=== PATIENT | male | born 1950 | race American Indian/Alaskan Native ===

== ENCOUNTER 2020-10-04 21:00 | Inpatient (IN) | payer MEDICARE, OTHER ==
[2020-10-04] MEDS ORDERED: MAGNESIUM SULFATE 2 GM/50 ML BAG IV ONE (21:13)
[2020-10-04] MEDS ORDERED: ALBUTEROL 2.5 MG/3 ML NEBU IH ONE (21:13)
[2020-10-04] MEDS ORDERED: IPRATROPIUM 0.02% NEBU 2.5 ML IH ONE (21:13)
[2020-10-04] MEDS ORDERED: methylPREDNISolone Sod Succinate 125 MG/2 ML INJ IV ONE (21:13)
--- NOTE | 2020-10-04 21:17 | Emergency Department Report ---
ED Shortness of Breath HPI - General Chief Complaint: Dyspnea/Respdistress Stated Complaint: SOB Time Seen by Provider: 10/04/20 21:11 Source: patient, EMS Mode of arrival: Stretcher Limitations: No Limitations - History of Present Illness Initial Comments: Patient is a 70-year-old male who presents emergency with complaints of shortness of breath. Patient states he is also having fever and chills and cough. Patient states that he received his second dose of COVID-19 vaccine on September 27. Patient states her symptoms started 2 days ago. Patient dates his symptoms are worsening. Patient denies chest pain. Patient states he is having fatigue. Patient dates symptoms are better with rest and worse with exertion. Patient brought in by EMS. Report received from EMS. EMS states that the patient was found to be 88% on room air. Patient was placed on 3 L and his saturation increased to 96%. Patient was found to be febrile at 100.2. Patient was given albuterol treatment for the wheezing that EMS assessed in his lungs. EMS states they gave the patient 125 mg of Solu-Medrol. Patient denies recent travel. Patient denies recent international travel. Patient denies exposure to the novel coronavirus. Patient denies sick contacts. Patient denies loss of smell. Patient denies diarrhea. Patient denies coming in contact with anybody with symptoms of the novel coronavirus. Patient states that he had a colonoscopy in May and they remove 19 polyps and has been on iron pills ever since for anemia secondary to the polyps bleeding. Patient states she stopped taking the ferrous sulfate due to the GI side effects. Complaint: shortness of breath, cough -: Sudden Severity: severe Consistency: constant Improves With: rest Worsens With: exertion Known History Of: asthma Associated Symptoms: fever, cough, other (chills) Treatments Prior to Arrival: oxygen, bronchodilator - Related Data Home Oxygen Therapy: No Allergies Allergy/AdvReac Type Severity Reaction Status Date / Time No Known Allergies Allergy Unverified 10/04/20 21:22 ED Review of Systems ROS: Stated complaint: SOB Other details as noted in HPI Constitutional: see HPI, chills, fever, malaise Eyes: denies: eye pain, eye discharge, vision change ENT: denies: ear pain, throat pain Respiratory: see HPI, cough, shortness of breath. denies: wheezing Cardiovascular: denies: chest pain, palpitations Endocrine: no symptoms reported Gastrointestinal: denies: abdominal pain, nausea, diarrhea Genitourinary: denies: urgency, dysuria Musculoskeletal: denies: back pain, joint swelling, arthralgia Skin: denies: rash, lesions Neurological: denies: headache, weakness, paresthesias Psychiatric: denies: anxiety, depression Hematological/Lymphatic: denies: easy bleeding, easy bruising ED Past Medical Hx - Past Medical History Previous Medical History?: Yes Hx Hypertension: Yes Hx Diabetes: Yes Hx Asthma: Yes - Surgical History Past Surgical History?: No - Family History Family history: no significant - Social History Smoking Status: Never Smoker Substance Use Type: None ED Physical Exam - General Limitations: No Limitations General appearance: alert, in distress - Head Head exam: Present: atraumatic, normocephalic - Eye Eye exam: Present: normal appearance - ENT ENT exam: Present: mucous membranes moist - Neck Neck exam: Present: normal inspection - Respiratory Respiratory exam: Present: respiratory distress, wheezes, decreased breath sounds - Cardiovascular Cardiovascular Exam: Present: regular rate, normal rhythm. Absent: systolic murmur, diastolic murmur, rubs, gallop - GI/Abdominal GI/Abdominal exam: Present: soft, normal bowel sounds - Rectal Rectal exam: Present: deferred - Extremities Exam Extremities exam: Present: normal inspection - Back Exam Back exam: Present: normal inspection - Neurological Exam Neurological exam: Present: alert, oriented X3 - Psychiatric Psychiatric exam: Present: normal affect, normal mood - Skin Skin exam: Present: warm, dry, intact, normal color. Absent: rash ED Course Vital Signs 10/04/20 10/04/20 10/04/20 21:20 21:21 21:22 Temperature Pulse Rate 102 H 102 H 101 H Pulse Rate [ Bilateral] Respiratory 20 16 21 Rate Respiratory Rate [Bilateral ] Blood Pressure 138/74 O2 Sat by Pulse 93 96 96 Oximetry 10/04/20 10/04/20 10/04/20 21:24 21:26 21:27 Temperature 100.2 F H Pulse Rate 100 H 98 H Pulse Rate [ Bilateral] Respiratory 24 22 Rate Respiratory Rate [Bilateral ] Blood Pressure 138/74 138/74 O2 Sat by Pulse 95 96 Oximetry 10/04/20 10/04/20 10/04/20 21:28 21:30 21:31 Temperature Pulse Rate 99 H 97 H 97 H Pulse Rate [ Bilateral] Respiratory 25 H 22 22 Rate Respiratory Rate [Bilateral ] Blood Pressure 138/74 138/74 132/72 O2 Sat by Pulse 94 95 94 Oximetry 10/04/20 10/04/20 10/04/20 21:32 21:34 21:36 Temperature Pulse Rate 95 H 100 H 97 H Pulse Rate [ Bilateral] Respiratory 20 20 27 H Rate Respiratory Rate [Bilateral ] Blood Pressure 132/72 132/72 132/72 O2 Sat by Pulse 94 96 94 Oximetry 10/04/20 10/04/20 10/04/20 21:38 21:40 21:42 Temperature Pulse Rate 96 H 97 H 95 H Pulse Rate [ Bilateral] Respiratory 22 19 20 Rate Respiratory Rate [Bilateral ] Blood Pressure 132/72 132/72 132/72 O2 Sat by Pulse 94 96 94 Oximetry 10/04/20 10/04/20 10/04/20 21:44 21:46 21:48 Temperature Pulse Rate 94 H 94 H 95 H Pulse Rate [ Bilateral] Respiratory 16 16 17 Rate Respiratory Rate [Bilateral ] Blood Pressure 132/72 132/72 132/72 O2 Sat by Pulse 94 94 95 Oximetry 10/04/20 10/04/20 10/04/20 21:50 21:52 21:54 Temperature Pulse Rate 95 H 91 H 90 Pulse Rate [ Bilateral] Respiratory 25 H 29 H 20 Rate Respiratory Rate [Bilateral ] Blood Pressure 132/72 132/72 132/72 O2 Sat by Pulse 95 93 97 Oximetry 10/04/20 10/04/20 10/04/20 21:56 21:58 22:00 Temperature Pulse Rate 91 H 90 89 Pulse Rate [ Bilateral] Respiratory 10 L 21 21 Rate Respiratory Rate [Bilateral ] Blood Pressure 132/72 132/72 132/72 O2 Sat by Pulse 95 94 96 Oximetry 10/04/20 10/04/20 10/04/20 22:01 22:02 22:04 Temperature Pulse Rate 90 90 92 H Pulse Rate [ Bilateral] Respiratory 19 22 19 Rate Respiratory Rate [Bilateral ] Blood Pressure 136/77 136/77 136/77 O2 Sat by Pulse 94 94 92 Oximetry 10/04/20 10/04/20 10/04/20 22:06 22:08 22:09 Temperature Pulse Rate 90 89 Pulse Rate [ 90 Bilateral] Respiratory 19 31 H Rate Respiratory 20 Rate [Bilateral ] Blood Pressure 136/77 136/77 O2 Sat by Pulse 93 99 Oximetry 10/04/20 10/04/20 10/04/20 22:10 22:12 22:14 Temperature Pulse Rate 91 H 89 87 Pulse Rate [ Bilateral] Respiratory 22 26 H 22 Rate Respiratory Rate [Bilateral ] Blood Pressure 136/77 136/77 136/77 O2 Sat by Pulse 99 99 98 Oximetry 10/04/20 10/04/20 10/04/20 22:16 22:18 22:20 Temperature Pulse Rate 90 88 88 Pulse Rate [ Bilateral] Respiratory 22 23 25 H Rate Respiratory Rate [Bilateral ] Blood Pressure 136/77 136/77 136/77 O2 Sat by Pulse 97 96 96 Oximetry 10/04/20 10/04/20 10/04/20 22:22 22:24 22:26 Temperature Pulse Rate 88 88 89 Pulse Rate [ Bilateral] Respiratory 22 21 20 Rate Respiratory Rate [Bilateral ] Blood Pressure 136/77 136/77 136/77 O2 Sat by Pulse 97 97 97 Oximetry 10/04/20 10/04/20 10/04/20 22:28 22:30 22:31 Temperature Pulse Rate 90 90 89 Pulse Rate [ Bilateral] Respiratory 22 20 21 Rate Respiratory Rate [Bilateral ] Blood Pressure 136/77 136/77 136/72 O2 Sat by Pulse 97 97 97 Oximetry 10/04/20 10/04/20 10/04/20 22:32 22:34 22:36 Temperature Pulse Rate 89 91 H 95 H Pulse Rate [ Bilateral] Respiratory 18 21 21 Rate Respiratory Rate [Bilateral ] Blood Pressure 136/72 136/72 136/72 O2 Sat by Pulse 98 97 97 Oximetry 10/04/20 10/04/20 10/04/20 22:38 22:40 22:42 Temperature Pulse Rate 91 H 93 H 98 H Pulse Rate [ Bilateral] Respiratory 17 26 H 22 Rate Respiratory Rate [Bilateral ] Blood Pressure 136/72 136/72 136/72 O2 Sat by Pulse 97 97 97 Oximetry 10/04/20 10/04/20 10/04/20 22:44 22:46 22:48 Temperature Pulse Rate 93 H 94 H 92 H Pulse Rate [ Bilateral] Respiratory 20 25 H 19 Rate Respiratory Rate [Bilateral ] Blood Pressure 136/72 136/72 136/72 O2 Sat by Pulse 96 97 95 Oximetry 10/04/20 10/04/20 10/04/20 22:50 22:52 22:54 Temperature Pulse Rate 93 H 93 H 96 H Pulse Rate [ Bilateral] Respiratory 17 27 H 27 H Rate Respiratory Rate [Bilateral ] Blood Pressure 136/72 136/72 136/72 O2 Sat by Pulse 96 95 97 Oximetry 10/04/20 10/04/20 10/04/20 22:56 22:58 23:00 Temperature Pulse Rate 99 H 103 H Pulse Rate [ Bilateral] Respiratory 22 30 H Rate Respiratory Rate [Bilateral ] Blood Pressure 136/72 136/72 136/72 O2 Sat by Pulse 97 97 97 Oximetry 10/04/20 10/04/20 10/04/20 23:02 23:04 23:06 Temperature Pulse Rate 96 H 94 H Pulse Rate [ Bilateral] Respiratory 29 H 28 H 26 H Rate Respiratory Rate [Bilateral ] Blood Pressure 161/75 161/75 161/75 O2 Sat by Pulse 96 96 96 Oximetry 10/04/20 10/04/20 10/04/20 23:08 23:10 23:12 Temperature Pulse Rate 93 H 93 H 93 H Pulse Rate [ Bilateral] Respiratory 22 22 22 Rate Respiratory Rate [Bilateral ] Blood Pressure 161/75 161/75 161/75 O2 Sat by Pulse 96 96 96 Oximetry 10/04/20 10/04/20 10/04/20 23:14 23:16 23:18 Temperature Pulse Rate 83 92 H 92 H Pulse Rate [ Bilateral] Respiratory 23 22 18 Rate Respiratory Rate [Bilateral ] Blood Pressure 161/75 161/75 161/75 O2 Sat by Pulse 95 96 96 Oximetry 10/04/20 10/04/20 10/04/20 23:20 23:22 23:24 Temperature Pulse Rate 91 H 92 H 94 H Pulse Rate [ Bilateral] Respiratory 20 19 21 Rate Respiratory Rate [Bilateral ] Blood Pressure 161/75 161/75 161/75 O2 Sat by Pulse 96 96 96 Oximetry 10/04/20 10/04/20 10/04/20 23:26 23:28 23:30 Temperature Pulse Rate 98 H 99 H 100 H Pulse Rate [ Bilateral] Respiratory 18 22 22 Rate Respiratory Rate [Bilateral ] Blood Pressure 161/75 161/75 161/75 O2 Sat by Pulse 96 97 92 Oximetry 10/04/20 10/04/20 10/04/20 23:31 23:32 23:34 Temperature Pulse Rate 97 H 95 H 95 H Pulse Rate [ Bilateral] Respiratory 21 23 21 Rate Respiratory Rate [Bilateral ] Blood Pressure 161/79 161/79 161/79 O2 Sat by Pulse 94 95 95 Oximetry 10/04/20 10/04/20 10/04/20 23:36 23:38 23:40 Temperature Pulse Rate 95 H 93 H 91 H Pulse Rate [ Bilateral] Respiratory 22 18 21 Rate Respiratory Rate [Bilateral ] Blood Pressure 161/79 161/79 161/79 O2 Sat by Pulse 95 95 95 Oximetry 10/04/20 10/04/20 10/04/20 23:42 23:44 23:46 Temperature Pulse Rate 92 H 92 H 83 Pulse Rate [ Bilateral] Respiratory 20 25 H 19 Rate Respiratory Rate [Bilateral ] Blood Pressure 161/79 161/79 161/79 O2 Sat by Pulse 95 95 94 Oximetry 10/04/20 10/04/20 10/04/20 23:48 23:50 23:52 Temperature Pulse Rate 89 82 92 H Pulse Rate [ Bilateral] Respiratory 22 15 14 Rate Respiratory Rate [Bilateral ] Blood Pressure 161/79 161/79 161/79 O2 Sat by Pulse 94 95 94 Oximetry 10/04/20 10/04/20 10/04/20 23:54 23:56 23:58 Temperature Pulse Rate 83 93 H Pulse Rate [ Bilateral] Respiratory 15 14 Rate Respiratory Rate [Bilateral ] Blood Pressure 161/79 161/79 161/79 O2 Sat by Pulse 96 96 96 Oximetry 10/05/20 10/05/20 10/05/20 00:34 00:35 00:36 Temperature Pulse Rate 88 86 88 Pulse Rate [ Bilateral] Respiratory 14 21 19 Rate Respiratory Rate [Bilateral ] Blood Pressure 161/79 148/75 148/75 O2 Sat by Pulse 93 Oximetry 10/05/20 10/05/20 10/05/20 00:38 00:40 00:42 Temperature Pulse Rate 85 85 84 Pulse Rate [ Bilateral] Respiratory 22 15 16 Rate Respiratory Rate [Bilateral ] Blood Pressure 148/75 148/75 148/75 O2 Sat by Pulse 96 97 97 Oximetry 10/05/20 10/05/20 10/05/20 00:44 00:46 00:48 Temperature Pulse Rate 82 83 82 Pulse Rate [ Bilateral] Respiratory 21 15 16 Rate Respiratory Rate [Bilateral ] Blood Pressure 148/75 148/75 148/75 O2 Sat by Pulse 96 96 97 Oximetry 10/05/20 10/05/20 10/05/20 00:50 00:52 00:54 Temperature Pulse Rate 81 82 89 Pulse Rate [ Bilateral] Respiratory 22 21 19 Rate Respiratory Rate [Bilateral ] Blood Pressure 148/75 148/75 148/75 O2 Sat by Pulse 97 96 95 Oximetry 10/05/20 10/05/20 10/05/20 00:56 00:58 01:00 Temperature Pulse Rate 92 H 83 83 Pulse Rate [ Bilateral] Respiratory 19 21 14 Rate Respiratory Rate [Bilateral ] Blood Pressure 148/75 148/75 148/75 O2 Sat by Pulse 97 97 96 Oximetry 10/05/20 10/05/20 01:01 01:02 Temperature Pulse Rate 81 80 Pulse Rate [ Bilateral] Respiratory 22 15 Rate Respiratory Rate [Bilateral ] Blood Pressure 131/71 131/71 O2 Sat by Pulse 96 98 Oximetry - Reevaluation(s) Reevaluation #1: Patient states he is feeling a little bit better. Patient is currently on oxygen. Patient is on 2 L. Patient's oxygen saturation is improving. 10/04/20 21:48 Reevaluation #2: Patient states he is feeling much better. Patient still on oxygen support. Patient's lung sounds have improved. 10/04/20 22:48 Reevaluation #3: I discussed all results with patient. I discussed plan of care with patient. Patient agrees with plan of care and admission. Patient to be admitted to the hospitalist service. 10/05/20 01:14 - Consultations Consultation #1: Hospitalist consulted for admission. Hospitalist to admit patient. 10/05/20 01:14 ED Medical Decision Making - Lab Data Result diagrams: 10/04/20 21:24 10/04/20 21:55 - EKG Data -: EKG Interpreted by Me EKG shows normal: sinus rhythm, axis, intervals, QRS complexes, ST-T waves Rate: normal - Radiology Data Radiology results: report reviewed, image reviewed interpreted by me: Chest x-ray: No pneumonia, no pneumothorax, no foreign body, no osseous findings, no acute findings CHEST 1 VIEW INDICATION: Dyspnea. COMPARISON: None. FINDINGS: Support devices: None. Heart: Normal. Lungs/Pleura: Streaky opacities in the bases are likely atelectatic. Lungs are otherwise clear. No pleural abnormality is seen. IMPRESSION: 1. No acute findings. CTA CHEST WITH IV CONTRAST INDICATION: Patient complains of shortness of breath. Hypoxia. TECHNIQUE: Axial CT images were obtained through the chest after injection of IV contrast. 3 plane MIP reconstructions were produced. All CT scans at this location are performed using CT dose reduction for ALARA by means of automated exposure control. COMPARISON: No prior CTs. FINDINGS: Pulmonary Arteries: No pulmonary emboli. Thoracic Aorta: No acute abnormality. Heart: Normal. Lungs: No acute air space or interstitial disease. Pleura: No pleural effusion. No pneumothorax. Lymph Nodes: No significant adenopathy. Additional Findings: None. Upper Abdomen: No acute findings. Skeletal Structures: No significant osseous abnormality. IMPRESSION: 1. No CT evidence for pulmonary embolism. 2. No acute findings. - Medical Decision Making Patient is a 70-year-old male who presents emergency room with complaints of shortness of breath and difficulty breathing. Patient history of asthma. Patient brought in by EMS. EMS gave the patient albuterol and Solu-Medrol. Patient also required oxygen support by EMS due to hypoxia with a oxygen saturation of 88%. Patient initially on 6 L and decreased to 2 L after DuoNeb and magnesium was given. Patient still required oxygen support. Patient's lung sounds improved. Patient's work to breathe has improved with therapy. Patient's lung sounds improved. Patient's work to breathe has improved with therapy. Patient had labs done which showed a elevated lactic acid and WBC, elevated D-dimer and UTI. Patient also had Covid labs done. Patient was also initially tachycardic. Patient treated for sepsis. Patient given early antibiotics and fluids. Patient's heart rate responded well to fluids. Patient had a chest x-ray done and shows no acute findings. I personally reviewed the chest x-ray. Patient EKG done shows a sinus rhythm. No acute findings or ST segment changes on the EKG. I personally reviewed the EKG. patient had a CTA of the chest to rule out acute PE and acute chest findings and for elevated D- dimer. Patient CTA was negative for acute findings. Patient found to have sepsis and the only source of infection was UTI. Antibiotic therapy will cover UTI. Patient admitted to the hospital service for further evaluation treatment. Critical care time documented due to the multiple reassessments, prolonged time at the bedside, interpretation of diagnostics and labs. - Differential Diagnosis Status asthmaticus, fever, pneumonia, Covid vaccine reaction Critical Care Time: Yes Critical care time in (mins) excluding proc time.: 35 Critical care attestation.: If time is entered above; I have spent that time in minutes in the direct care of this critically ill patient, excluding procedure time. Critical Care Time: 35 minutes ED Disposition Clinical Impression: Lactic acid acidosis, COVID-19 vaccine series started, Person under investigation for COVID-19 Fever Qualifiers: Fever type: unspecified Qualified Code(s): R50.9 - Fever, unspecified Respiratory failure Qualifiers: Chronicity: acute Respiratory failure complication: hypoxia Qualified Code(s): J96.01 - Acute respiratory failure with hypoxia Status asthmaticus Qualifiers: Asthma severity: moderate Asthma persistence: persistent Qualified Code(s): J45.42 - Moderate persistent asthma with status asthmaticus UTI (urinary tract infection) Qualifiers: Urinary tract infection type: acute cystitis Hematuria presence: with hematuria Qualified Code(s): N30.01 - Acute cystitis with hematuria Sepsis Qualifiers: Sepsis type: sepsis due to unspecified organism Sepsis acute organ dysfunction status: without acute organ dysfunction Qualified Code(s): A41.9 - Sepsis, un specified organism Disposition: OP ADMIT IP TO THIS HOSP Is pt being admited?: Yes Does the pt Need Aspirin: No Condition: Critical Referrals: PRIMARY CARE, [Primary Care Provider] - 3-5 Days Time of Disposition: 01:12
[2020-10-04] MEDS ORDERED: SODIUM CHLORIDE 0.9% 1000 ML IV SOLN IV ONE (21:49)
[2020-10-04] MEDS ORDERED: AZITHROMYCIN/NS 500 MG/250 ML 500 MG/250 ML BAG IV ONE (21:49)
[2020-10-04] MEDS ORDERED: cefTRIAXone/NS 2 GM/100 ML 2 GM/100 ML BAG IV ONE (21:49)
[2020-10-04 21:52] LABS: Hemoglobin 13.4 gm/dl (11.8-15.2); Mean Corpuscular HGB Conc 32 % (32-34); Mean Corpuscular Volume 81 fl (84-94); Platelet Count 296 K/mm3 (140-440); Red Blood Count 5.16 M/mm3 (3.65-5.03); Red Cell Distribution Width 16.2 % (13.2-15.2)
[2020-10-04 21:56] LABS: Bacteria,Urine 2+ /HPF (Negative); Bilirubin,Urine NEG (Negative); Blood,Urine NEG (Negative); Color,Urine Yellow (Yellow); Mucus,Urine FEW /HPF
[2020-10-04 21:57] LABS: Protein,Urine >500 mg/dL (Negative)
[2020-10-04 22:04] LABS: Creatine Kinase MB < 1.0 ng/mL (0.0-4.0)
[2020-10-04 22:05] LABS: Alanine Aminotransferase 43 units/L (7-56); Albumin 2.9 g/dL (3.9-5); BUN/Creatinine Ratio 9; Blood Urea Nitrogen 13 mg/dL (9-20); Hemolysis Index 10
[2020-10-04 22:29] LABS: Band Neutrophils # (Manual) 2.9 K/mm3; Hypochromasia 1+; Total Cells Counted 100
[2020-10-04 22:30] LABS: Large Platelets Rare
[2020-10-04 22:31] LABS: Platelet Estimate Consistent w Auto
--- NOTE | 2020-10-04 23:10 | XRay Report ---
CHEST 1 VIEW INDICATION: Dyspnea. COMPARISON: None. FINDINGS: Support devices: None. Heart: Normal. Lungs/Pleura: Streaky opacities in the bases are likely atelectatic. Lungs are otherwise clear. No pl eural abnormality is seen. IMPRESSION: 1. No acute findings. Signer Name: Royal Myers MD Signed: 10/04/2020 11:06 PM Workstation Name: [id number]
--- NOTE | 2020-10-05 00:39 | Cat Scan Report ---
CTA CHEST WITH IV CONTRAST INDICATION: Patient complains of shortness of breath. Hypoxia. TECHNIQUE: Axial CT images were obtained through the chest after injection of IV contrast. 3 plane MIP reconstru ctions were produced. All CT scans at this location are performed using CT dose reduction for ALARA b y means of automated exposure control. COMPARISON: No prior CTs. FINDINGS: Pulmonary Arteries: No pulmonary emboli. Thoracic Aorta: No acute abnormality. Heart: Normal. Lungs: No acute air space or interstitial disease. Pleura: No pleural effusion. No pneumothorax. Lymph Nodes: No significant adenopathy. Additional Findings: None. Upper Abdomen: No acute findings. Skeletal Structures: No significant osseous abnormality. IMPRESSION: 1. No CT evidence for pulmonary embolism. 2. No acute findings. Signer Name: Royal Myers MD Signed: 10/05/2020 12:34 AM Workstation Name: [id number]
[2020-10-05] MEDS ORDERED: MAGNESIUM HYDROXIDE (MOM) ORAL LIQD UDC PO PRN (01:16)
[2020-10-05] MEDS ORDERED: DEXTROSE 50% IN WATER (25GM) 50 ML SYRINGE IV PRN (01:16)
[2020-10-05] MEDS ORDERED: ONDANSETRON 4 MG/2 ML INJ IV PRN (01:16)
[2020-10-05] MEDS ORDERED: ACETAMINOPHEN 325 MG TAB PO PRN (01:16)
[2020-10-05 01:27] LABS: C-Reactive Protein 6.9 mg/dL (0.00-1.30)
--- NOTE | 2020-10-05 01:36 | History and Physical Report ---
History of Present Illness Date of examination: 10/05/20 Date of admission: 10/05/2020 Chief complaint: Shortness of Breath History of present illness: 70-year-old male with known history of diabetes mellitus, hypertension and asthma presenting to the emergency room today complaining of shortness of breath. Shortness of breath has been ongoing for the past 2 days. He has had associated fever and chills and some mild cough. Patient denies any chest pain, no nausea vomiting, no headache or dizziness and no diaphoresis. He indicates that he got his second dose of COVID-19 vaccine on September 27. En route to the hospital EMS indicates that her oxygen saturation was about 88% on room air and was placed on 3 L of oxygen by nasal cannula with oxygen saturation improving to about 96%. Upon arrival in the emergency room was found to have a low-grade fever 100.2 F. He was found to be wheezing and was given some nebulizing treatment with improvement. Work-up in the emergency room today reveals elevated D-dimer, elevated lactic acid, chest x-ray unremarkable. Patient admitted with asthma exacerbation. He will also be ruled out for COVID- 19. Past History Past Medical History: diabetes, hypertension, other (Asthma) Past Surgical History: No surgical history Social history: no significant social history Medications and Allergies Allergies Allergy/AdvReac Type Severity Reaction Status Date / Time No Known Allergies Allergy Unverified 10/04/20 21:22 Active Meds: Active Medications Acetaminophen (Acetaminophen 325 Mg Tab) 650 mg PO Q4H PRN PRN Reason: Pain MILD(1-3)/Fever >100.5/RUIZ Albuterol/Ipratropium (Ipratropium/Albuterol Sulfate 3 Ml Ampul.Neb) 1 ampul IH Q6HRT [facility] Dextrose (Dextrose 50% In Water (25gm) 50 Ml Syringe) 50 ml IV Q30MIN PRN; Protocol PRN Reason: Hypoglycemia Dextrose (Dextrose 50% In Water (25gm) 50 Ml Syringe) 50 ml IV Q30MIN PRN; Protocol PRN Reason: Hypoglycemia Heparin Sodium (Porcine) (Heparin 5,000 Unit/1 Ml Vial) 5,000 unit SUB-Q Q8HR [facility] Insulin Human Lispro (Insulin Lispro 100 Unit/Ml) 0 unit SUB-Q ACHS [facility]; Protocol Magnesium Hydroxide (Magnesium Hydroxide (Mom) Oral Liqd Udc) 30 ml PO Q4H PRN PRN Reason: Constipation Methylprednisolone Sodium Succinate (Methylprednisolone Sod Succinate 40 Mg/1 Ml Inj) 40 mg IV Q8HR [facility] Ondansetron HCl (Ondansetron 4 Mg/2 Ml Inj) 4 mg IV Q8H PRN PRN Reason: Nausea And Vomiting Sodium Chloride (Sodium Chloride 0.9% 10 Ml Flush Syringe) 10 ml IV BID [facility] Sodium Chloride (Sodium Chloride 0.9% 10 Ml Flush Syringe) 10 ml IV PRN PRN PRN Reason: LINE FLUSH Review of Systems Constitutional: fever, no chills Ears, nose, mouth and throat: no nasal congestion, no sore throat Cardiovascular: no chest pain, no palpitations Respiratory: cough, shortness of breath, wheezing Gastrointestinal: no abdominal pain, no nausea, no vomiting, no diarrhea Genitourinary Male: no dysuria, no hematuria, no flank pain, no nocturia Musculoskeletal: no neck pain, no low back pain Integumentary: no rash, no pruritis Neurological: no headaches, no confusion Psychiatric: no anxiety, no depression, no confusion Endocrine: no polydipsia, no polyuria, no nocturia Exam - Constitutional Vitals: Temp Pulse Resp BP Pulse Ox 100.2 F H 81 19 161/79 97 10/04/20 21:27 10/05/20 01:22 10/05/20 01:22 10/05/20 01:24 10/05/20 01:24 General appearance: Present: no acute distress, well-nourished, obese - EENT Eyes: Present: PERRL, EOM intact. Absent: scleral icterus ENT: hearing intact, clear oral mucosa, dentition normal - Neck Neck: Present: supple, normal ROM - Respiratory Respiratory effort: normal Respiratory: bilateral: wheezing - Cardiovascular Rhythm: regular Heart Sounds: Present: S1 & S2. Absent: gallop, systolic murmur, diastolic murmur, rub, click - Extremities Extremities: no ischemia, pulses intact, pulses symmetrical, No edema, normal temperature, normal color, Full ROM Peripheral Pulses: within normal limits - Abdominal General gastrointestinal: Present: soft, non-tender, non-distended, normal bowel sounds. Absent: mass - Integumentary Integumentary: Present: clear, warm, dry. Absent: rash - Musculoskeletal Musculoskeletal: strength equal bilaterally - Psychiatric Psychiatric: appropriate mood/affect, intact judgment & insight, memory intact, cooperative - Neurologic Neurologic: CNII-XII intact, no focal deficits, moves all extremities HEART Score - HEART Score Troponin: Troponin T < 0.010 ng/mL (0.00-0.029) 10/04/20 21:24 Results - Labs CBC & Chem 7: 10/04/20 21:24 10/04/20 21:55 Labs: Abnormal lab results 10/04/20 10/04/20 10/04/20 Range/Units 21:24 21:24 21:24 WBC 18.0 H (4.5-11.0) K/mm3 RBC 5.16 H (3.65-5.03) M/mm3 MCV 81 L (84-94) fl MCH 26 L (28-32) pg RDW 16.2 H (13.2-15.2) % Seg Neuts % (Manual) 76.0 H (40.0-70.0) % Lymphocytes % (Manual) 6.0 L (13.4-35.0) % Seg Neutrophils # Man 13.7 H (1.8-7.7) K/mm3 Lymphocytes # (Manual) 1.1 L (1.2-5.4) K/mm3 D-Dimer (0-234) ng/mlDDU Sodium 136 L (137-145) mmol/L Carbon Dioxide 19 L (22-30) mmol/L Creatinine 1.4 H (0.8-1.3) mg/dL Glucose (75-100) mg/dL Lactic Acid 3.20 H* (0.7-2.0) mmol/L Lactate Dehydrogenase (91-180) units/L C-Reactive Protein (0.00-1.30) mg/dL Albumin 2.9 L (3.9-5) g/dL Urine WBC (Auto) (0.0-6.0) /HPF 10/04/20 10/04/20 10/04/20 Range/Units 21:42 21:55 21:55 WBC (4.5-11.0) K/mm3 RBC (3.65-5.03) M/mm3 MCV (84-94) fl MCH (28-32) pg RDW (13.2-15.2) % Seg Neuts % (Manual) (40.0-70.0) % Lymphocytes % (Manual) (13.4-35.0) % Seg Neutrophils # Man (1.8-7.7) K/mm3 Lymphocytes # (Manual) (1.2-5.4) K/mm3 D-Dimer 2308.90 H (0-234) ng/mlDDU Sodium (137-145) mmol/L Carbon Dioxide (22-30) mmol/L Creatinine (0.8-1.3) mg/dL Glucose 120 H (75-100) mg/dL Lactic Acid (0.7-2.0) mmol/L Lactate Dehydrogenase 232 H (91-180) units/L C-Reactive Protein 6.90 H (0.00-1.30) mg/dL Albumin (3.9-5) g/dL Urine WBC (Auto) 37.0 H (0.0-6.0) /HPF 10/04/20 Range/Units 22:03 WBC (4.5-11.0) K/mm3 RBC (3.65-5.03) M/mm3 MCV (84-94) fl MCH (28-32) pg RDW (13.2-15.2) % Seg Neuts % (Manual) (40.0-70.0) % Lymphocytes % (Manual) (13.4-35.0) % Seg Neutrophils # Man (1.8-7.7) K/mm3 Lymphocytes # (Manual) (1.2-5.4) K/mm3 D-Dimer (0-234) ng/mlDDU Sodium (137-145) mmol/L Carbon Dioxide (22-30) mmol/L Creatinine (0.8-1.3) mg/dL Glucose (75-100) mg/dL Lactic Acid 2.70 H* (0.7-2.0) mmol/L Lactate Dehydrogenase (91-180) units/L C-Reactive Protein (0.00-1.30) mg/dL Albumin (3.9-5) g/dL Urine WBC (Auto) (0.0-6.0) /HPF Assessment and Plan - Patient Problems (1) Respiratory failure Current Visit: Yes Status: Acute Qualifiers: Chronicity: acute Respiratory failure complication: hypoxia Qualified Code(s): J96.01 - Acute respiratory failure with hypoxia Plan to address problem: Possibly secondary to the asthma exacerbation and underlying bronchitis. We will place consult to pulmonology for evaluation. (2) Sepsis Current Visit: Yes Status: Acute Qualifiers: Sepsis type: sepsis due to unspecified organism Sepsis acute organ dysf unction status: without acute organ dysfunction Qualified Code(s): A41.9 - Sepsis, unspecified organism Plan to address problem: Present on admission. Patient started on empiric IV antibiotics and IV fluid. Monitor labs (3) Status asthmaticus Current Visit: Yes Status: Acute Qualifiers: Asthma severity: moderate Asthma persistence: persistent Qualified Code(s): J45.42 - Moderate persistent asthma with status asthmaticus Plan to address problem: Patient commenced on nebulizing treatments and IV steroid. We will keep O2 saturation greater or equal to 94%. (4) UTI (urinary tract infection) Current Visit: Yes Status: Acute Qualifiers: Urinary tract infection type: acute cystitis Hematuria presence: with hematuria Qualified Code(s): N30.01 - Acute cystitis with hematuria Plan to address problem: Patient started on empiric IV antibiotics. (5) Morbid obesity with BMI of 45.0-49.9, adult Current Visit: Yes Status: Acute Plan to address problem: Lifestyle modification to be encouraged. We will place dietary consult. (6) DVT prophylaxis Current Visit: Yes Status: Acute Plan to address problem: Patient placed on subcutaneous heparin. (7) Full code status Current Visit: Yes Status: Acute Plan to address problem: Patient is a full code.
[2020-10-05] MEDS: IPRATROPIUM/ALBUTEROL SULFATE 3 ML AMPUL.NEB IH SCH ×4 (05:20→21:31)
[2020-10-05] MEDS: methylPREDNISolone Sod Succinate 40 MG/1 ML INJ IV SCH ×3 (05:34→21:50)
[2020-10-05] MEDS: HEPARIN 5,000 UNIT/1 ML VIAL SUB-Q SCH ×3 (05:34→21:50)
[2020-10-05] MEDS: INSULIN LISPRO 100 UNIT/ML SUB-Q SCH ×4 (08:28→21:49)
[2020-10-05] MEDS ORDERED: cefTRIAXone/NS 1 GM/50 ML 1 GM/50 ML BAG IV SCH ×2 (10:00→14:00)
--- NOTE | 2020-10-05 12:29 | Consultation ---
History of Present Illness Consult date: 10/05/20 Requesting physician: ROLF SERNA Reason for consult: asthma, hypoxemia History of present illness: 70 morbidly obese male admitted with asthma exacerbation. Patient concerned as he took his second vaccine back on 09/27/20. Symptoms started 2 days ago. Feels better already this am. Past History Past Medical History: diabetes, hypertension, other (Asthma) Past Surgical History: No surgical history Social history: no significant social history Medications and Allergies Allergies Allergy/AdvReac Type Severity Reaction Status Date / Time No Known Allergies Allergy Unverified 10/04/20 21:22 Active Meds: Active Medications Acetaminophen (Acetaminophen 325 Mg Tab) 650 mg PO Q4H PRN PRN Reason: Pain MILD(1-3)/Fever >100.5/RUIZ Albuterol/Ipratropium (Ipratropium/Albuterol Sulfate 3 Ml Ampul.Neb) 1 ampul IH Q6HRT [facility] Last Admin: 10/05/20 07:51 Dose: 1 ampul Documented by: Dextrose (Dextrose 50% In Water (25gm) 50 Ml Syringe) 0 ml IV Q30MIN PRN; Protocol PRN Reason: Hypoglycemia Heparin Sodium (Porcine) (Heparin 5,000 Unit/1 Ml Vial) 5,000 unit SUB-Q Q8HR [facility] Last Admin: 10/05/20 05:34 Dose: 5,000 unit Documented by: Ceftriaxone Sodium (Rocephin/Ns 1 Gm/50 Ml) 1 gm in 50 mls @ 100 mls/hr IV Q24HR [facility]; Protocol Last Admin: 10/05/20 11:58 Dose: 100 mls/hr Documented by: Insulin Human Lispro (Insulin Lispro 100 Unit/Ml) 0 unit SUB-Q ACHS [facility]; Protocol Last Admin: 10/05/20 08:28 Dose: 2 unit Documented by: Magnesium Hydroxide (Magnesium Hydroxide (Mom) Oral Liqd Udc) 30 ml PO Q4H PRN PRN Reason: Constipation Methylprednisolone Sodium Succinate (Methylprednisolone Sod Succinate 40 Mg/1 Ml Inj) 40 mg IV Q8HR [facility] Last Admin: 10/05/20 05:34 Dose: 40 mg Documented by: Ondansetron HCl (Ondansetron 4 Mg/2 Ml Inj) 4 mg IV Q8H PRN PRN Reason: Nausea And Vomiting Sodium Chloride (Sodium Chloride 0.9% 10 Ml Flush Syringe) 10 ml IV BID [facility] Last Admin: 10/05/20 11:58 Dose: 10 ml Documented by: Sodium Chloride (Sodium Chloride 0.9% 10 Ml Flush Syringe) 10 ml IV PRN PRN PRN Reason: LINE FLUSH Physical Examination Vital signs: Vital Signs Pulse Resp Pulse Ox 102 H 20 93 10/04/20 21:20 10/04/20 21:20 10/04/20 21:20 Results - Laboratory Findings CBC and BMP: 10/04/20 21:24 10/04/20 21:55 PT/INR, D-dimer D-Dimer 2308.90 ng/mlDDU (0-234) H 10/04/20 21:55 Abnormal lab findings: Abnormal Labs 10/04/20 10/04/20 10/04/20 21:24 21:24 21:24 WBC 18.0 H RBC 5.16 H MCV 81 L MCH 26 L RDW 16.2 H Seg Neuts % (Manual) 76.0 H Lymphocytes % (Manual) 6.0 L Seg Neutrophils # Man 13.7 H Lymphocytes # (Manual) 1.1 L D-Dimer Sodium 136 L Carbon Dioxide 19 L Creatinine 1.4 H Glucose POC Glucose Lactic Acid 3.20 H* Lactate Dehydrogenase C-Reactive Protein Albumin 2.9 L Urine WBC (Auto) 10/04/20 10/04/20 10/04/20 21:42 21:55 21:55 WBC RBC MCV MCH RDW Seg Neuts % (Manual) Lymphocytes % (Manual) Seg Neutrophils # Man Lymphocytes # (Manual) D-Dimer 2308.90 H Sodium Carbon Dioxide Creatinine Glucose 120 H POC Glucose Lactic Acid Lactate Dehydrogenase 232 H C-Reactive Protein 6.90 H Albumin Urine WBC (Auto) 37.0 H 10/04/20 10/05/20 10/05/20 22:03 08:21 08:55 WBC RBC MCV MCH RDW Seg Neuts % (Manual) Lymphocytes % (Manual) Seg Neutrophils # Man Lymphocytes # (Manual) D-Dimer Sodium Carbon Dioxide Creatinine Glucose POC Glucose 183 H Lactic Acid 2.70 H* 2.20 H* Lactate Dehydrogenase C-Reactive Protein Albumin Urine WBC (Auto) - Diagnostic Findings Chest x-ray: image reviewed CT scan - chest: image reviewed Assessment and Plan 70 y/o obese male with asthma exacerbation. 1. Added bid Pulmicort therapy 2. Suggest walk test tomorrow 3. At discharge would send out on SYmbicort 160 2 puffs BID and PRN albuterol rescue inhaler 4. At discharge would send out on Prednisone 60 daily for 2 days, 40 daily for 2 days, then 20 daily for 2 days then stop. 5. NO objection to discharge tomorrow. Follow up COVID testing.
--- NOTE | 2020-10-05 12:33 | Consultation ---
History of Present Illness - Reason for Consult Consult date: 10/05/20 - History of Present Illness 70-year-old man past medical history diabetes, hypertension, asthma presented to the hospital complaining of shortness of breath. He notes this began approximately 2 days prior to admission and has been worse since then. Complains of associated fevers and cough. He otherwise denies any symptoms. He notes receiving a second dose of COVID-19 vaccine on September 27. Afebrile with T-max 100.2. White count 18. Mild pyuria on urinalysis. Procalcitonin 25.8, normal renal function. Blood cultures no growth so far. Currently on ceftriaxone and methylprednisolone. Currently on 3 L nasal can nula. Covid testing pending. Imaging personally reviewed: Chest CT: No evidence of pulmonary embolism. No acute pneumonia evident. Review of systems: Deferred to reduce to the risk of transmission of COVID-19 Past History Past Medical History: diabetes, hypertension, other (Asthma) Past Surgical History: No surgical history Social history: no significant social history Medications and Allergies Allergies Allergy/AdvReac Type Severity Reaction Status Date / Time No Known Allergies Allergy Unverified 10/04/20 21:22 Active Meds: Active Medications Acetaminophen (Acetaminophen 325 Mg Tab) 650 mg PO Q4H PRN PRN Reason: Pain MILD(1-3)/Fever >100.5/RUIZ Albuterol/Ipratropium (Ipratropium/Albuterol Sulfate 3 Ml Ampul.Neb) 1 ampul IH Q6HRT [facility] Last Admin: 10/05/20 07:51 Dose: 1 ampul Documented by: Budesonide (Budesonide 0.5 Mg/2 Ml Nebu) 0.5 mg IH Q12HRT [facility] Dextrose (Dextrose 50% In Water (25gm) 50 Ml Syringe) 0 ml IV Q30MIN PRN; Protocol PRN Reason: Hypoglycemia Heparin Sodium (Porcine) (Heparin 5,000 Unit/1 Ml Vial) 5,000 unit SUB-Q Q8HR [facility] Last Admin: 10/05/20 05:34 Dose: 5,000 unit Documented by: Ceftriaxone Sodium (Rocephin/Ns 1 Gm/50 Ml) 1 gm in 50 mls @ 100 mls/hr IV Q24HR [facility]; Protocol Last Admin: 10/05/20 11:58 Dose: 100 mls/hr Documented by: Insulin Human Lispro (Insulin Lispro 100 Unit/Ml) 0 unit SUB-Q ACHS [facility]; Protocol Last Admin: 10/05/20 08:28 Dose: 2 unit Documented by: Magnesium Hydroxide (Magnesium Hydroxide (Mom) Oral Liqd Udc) 30 ml PO Q4H PRN PRN Reason: Constipation Methylprednisolone Sodium Succinate (Methylprednisolone Sod Succinate 40 Mg/1 Ml Inj) 40 mg IV Q8HR [facility] Last Admin: 10/05/20 05:34 Dose: 40 mg Documented by: Ondansetron HCl (Ondansetron 4 Mg/2 Ml Inj) 4 mg IV Q8H PRN PRN Reason: Nausea And Vomiting Sodium Chloride (Sodium Chloride 0.9% 10 Ml Flush Syringe) 10 ml IV BID [facility] Last Admin: 10/05/20 11:58 Dose: 10 ml Documented by: Sodium Chloride (Sodium Chloride 0.9% 10 Ml Flush Syringe) 10 ml IV PRN PRN PRN Reason: LINE FLUSH Physical Examination - Physical Exam Narrative exam: Physical exam deferred to reduce risk of transmission of COVID-19. Please refer to primary team's note. - Constitutional Vitals: Vital Signs Temp Pulse Resp BP Pulse Ox 98.3 F 88 18 146/73 98 10/05/20 04:57 10/05/20 07:51 10/05/20 07:51 10/05/20 04:57 10/05/20 07:31 Temperature -Last 24 Hours Temperature 98.3 F Temperature 100.2 F Results - Labs CBC & Chem 7: 10/04/20 21:24 10/04/20 21:55 Labs: Abnormal lab results 10/04/20 10/04/20 10/04/20 Range/Units 21:24 21:24 21:24 WBC 18.0 H (4.5-11.0) K/mm3 RBC 5.16 H (3.65-5.03) M/mm3 MCV 81 L (84-94) fl MCH 26 L (28-32) pg RDW 16.2 H (13.2-15.2) % Seg Neuts % (Manual) 76.0 H (40.0-70.0) % Lymphocytes % (Manual) 6.0 L (13.4-35.0) % Seg Neutrophils # Man 13.7 H (1.8-7.7) K/mm3 Lymphocytes # (Manual) 1.1 L (1.2-5.4) K/mm3 D-Dimer (0-234) ng/mlDDU Sodium 136 L (137-145) mmol/L Carbon Dioxide 19 L (22-30) mmol/L Creatinine 1.4 H (0.8-1.3) mg/dL Glucose (75-100) mg/dL POC Glucose (70-105) mg/dL Lactic Acid 3.20 H* (0.7-2.0) mmol/L Lactate Dehydrogenase (91-180) units/L C-Reactive Protein (0.00-1.30) mg/dL Albumin 2.9 L (3.9-5) g/dL Urine WBC (Auto) (0.0-6.0) /HPF 10/04/20 10/04/20 10/04/20 Range/Units 21:42 21:55 21:55 WBC (4.5-11.0) K/mm3 RBC (3.65-5.03) M/mm3 MCV (84-94) fl MCH (28-32) pg RDW (13.2-15.2) % Seg Neuts % (Manual) (40.0-70.0) % Lymphocytes % (Manual) (13.4-35.0) % Seg Neutrophils # Man (1.8-7.7) K/mm3 Lymphocytes # (Manual) (1.2-5.4) K/mm3 D-Dimer 2308.90 H (0-234) ng/mlDDU Sodium (137-145) mmol/L Carbon Dioxide (22-30) mmol/L Creatinine (0.8-1.3) mg/dL Glucose 120 H (75-100) mg/dL POC Glucose (70-105) mg/dL Lactic Acid (0.7-2.0) mmol/L Lactate Dehydrogenase 232 H (91-180) units/L C-Reactive Protein 6.90 H (0.00-1.30) mg/dL Albumin (3.9-5) g/dL Urine WBC (Auto) 37.0 H (0.0-6.0) /HPF 10/04/20 10/05/20 10/05/20 Range/Units 22:03 08:21 08:55 WBC (4.5-11.0) K/mm3 RBC (3.65-5.03) M/mm3 MCV (84-94) fl MCH (28-32) pg RDW (13.2-15.2) % Seg Neuts % (Manual) (40.0-70.0) % Lymphocytes % (Manual) (13.4-35.0) % Seg Neutrophils # Man (1.8-7.7) K/mm3 Lymphocytes # (Manual) (1.2-5.4) K/mm3 D-Dimer (0-234) ng/mlDDU Sodium (137-145) mmol/L Carbon Dioxide (22-30) mmol/L Creatinine (0.8-1.3) mg/dL Glucose (75-100) mg/dL POC Glucose 183 H (70-105) mg/dL Lactic Acid 2.70 H* 2.20 H* (0.7-2.0) mmol/L Lactate Dehydrogenase (91-180) units/L C-Reactive Protein (0.00-1.30) mg/dL Albumin (3.9-5) g/dL Urine WBC (Auto) (0.0-6.0) /HPF Assessment and Plan Cultures: Blood culture 10/05/2020 no growth so far Covid PCR: Pending. A/P: 70-year-old man past medical history diabetes, hypertension, asthma presented with acute hypoxic respiratory failure #Acute hypoxic respiratory failure: Pneumonia versus asthma. Currently on 3 L nasal cannula. Elevated procalcitonin. Has received both doses of COVID-19 vaccine #Asthma: Currently on methylprednisolone #Diabetes: tight glycemic control for best outcomes. Recs: -Continue empiric ceftriaxone 2 g every 24 hours to complete 5 days. In setting of elevated procalcitonin, would treat as pneumonia as sometimes radiographic findings can lag behind symptoms. -Started 3 days azithromycin. -Management of asthma per pulmonary/primary. -Given the above findings and the fact he received COVID-19 vaccine I doubt acute Covid infection. Follow-up PCR. If positive would start dexamethasone and remdesivir. Thank you for the consult, we will continue to follow. Dr. Ferro covering this weekend. Chilo Man MD [facility] ([facility] O: [phone] F: [phone]
--- NOTE | 2020-10-05 13:23 | Event Note ---
Date: 10/05/20 Patient seen and examined This the second visit after midnight 70-year-old morbidly obese male past medical history diabetes, hypertension, asthma presented with acute hypoxic respiratory failure Patient completed his Covid vaccination, unlikely to be COVID-19 pneumonia -PCR currently pending Continue empiric antibiotics for possible bacterial pneumonia as procalcitonin is elevated and supplemental O2, periodic breathing treatment and empiric steroid for acute asthma exacerbation. Continue current plan and management as dictated in H&P
[2020-10-05 13:48] LABS: Hematocrit 39.1 % (35.5-45.6); Hemoglobin 12.7 gm/dl (11.8-15.2); Mean Corpuscular HGB Conc 33 % (32-34); Mean Corpuscular Volume 82 fl (84-94); Platelet Count 285 K/mm3 (140-440); Red Blood Count 4.79 M/mm3 (3.65-5.03); Red Cell Distribution Width 16.8 % (13.2-15.2)
[2020-10-05] MEDS: AZITHROMYCIN 250 MG TAB PO SCH (14:07)
[2020-10-05 14:21] LABS: BUN/Creatinine Ratio 11; Blood Urea Nitrogen 14 mg/dL (9-20); Calcium 9.1 mg/dL (8.4-10.2); Hemolysis Index 11
--- NOTE | 2020-10-05 17:13 | Electrocardiograph Report ---
[facility] Test Date: 2020-10-04 Test Time: 21:36:37 Pat Name: KRISTIAN CLEMENS Department: Room: A366 1 Gender: M Peer Specialist: Oliva DIEZ : 1950 Requested By: SHEILA ACOSTA III Order Number: [id number] Reading MD: Fanta Post Measurements Intervals [place] Rate: 97 P: 45 DE: 261 QRS: -86 QRSD: 84 T: 56 QT: 325 QTc: 413 Interpretive Statements Sinus rhythm Prolonged DE interval Left axis deviation No previous ECG available for comparison Electronically Signed On 10-05-2020 17:13:05 EDT by Fanta Post
[2020-10-05] MEDS: BUDESONIDE 0.5 MG/2 ML NEBU IH SCH (21:31)
[2020-10-05] MEDS ORDERED: hydrALAZINE 20 MG/1 ML INJ IV PRN (22:13)
[2020-10-06] MEDS: HEPARIN 5,000 UNIT/1 ML VIAL SUB-Q SCH ×3 (05:49→21:48)
[2020-10-06] MEDS: methylPREDNISolone Sod Succinate 40 MG/1 ML INJ IV SCH ×3 (05:49→21:47)
[2020-10-06] MEDS: IPRATROPIUM/ALBUTEROL SULFATE 3 ML AMPUL.NEB IH SCH ×3 (06:51→18:57)
[2020-10-06] MEDS: BUDESONIDE 0.5 MG/2 ML NEBU IH SCH ×2 (08:40→20:35)
[2020-10-06] MEDS: INSULIN LISPRO 100 UNIT/ML SUB-Q SCH ×4 (09:19→21:58)
[2020-10-06 09:29] LABS: Hematocrit 40.8 % (35.5-45.6); Hemoglobin 13.1 gm/dl (11.8-15.2); Mean Corpuscular HGB Conc 32 % (32-34); Mean Corpuscular Volume 82 fl (84-94); Red Blood Count 4.99 M/mm3 (3.65-5.03); Red Cell Distribution Width 16.7 % (13.2-15.2)
[2020-10-06 09:33] LABS: Platelet Count 173 K/mm3 (140-440)
[2020-10-06 09:43] LABS: BUN/Creatinine Ratio 12; Blood Urea Nitrogen 15 mg/dL (9-20); Calcium 8.9 mg/dL (8.4-10.2); Hemolysis Index 40
[2020-10-06 10:17] LABS: INR 1.09 (0.87-1.13)
[2020-10-06] MEDS: cefTRIAXone/NS 2 GM/100 ML 2 GM/100 ML BAG IV SCH (10:40)
[2020-10-06] MEDS: AZITHROMYCIN 250 MG TAB PO SCH (10:40)
[2020-10-06 11:03] LABS: Total Cells Counted 100
[2020-10-06 11:04] LABS: Platelet Estimate Consistent w Auto; RBC Morphology Normal
[2020-10-06] MEDS ORDERED: NON-FORMULARY EACH (Lisinopril [Zestril Tab] 2.5 MG Tablet) PO SCH (12:15)
--- NOTE | 2020-10-06 12:16 | Discharge Summary ---
Providers - Providers Date of Admission: 10/05/20 12:20 Date of discharge: 10/06/20 Attending physician: NICHOLAS HERNANDEZ 10/04/20 22:39 Consult to Physician [CONS] Routine Comment: Consulting Provider: ANAND ALVA Physician Instructions: Reason For Exam: pui 10/05/20 01:21 Consult to Dietitian/Nutrition [CONS] Routine Physician Instructions: Reason For Exam: Reason for Consult: Diet education 10/05/20 07:04 Consult to Physician [CONS] Routine Comment: Consulting Provider: MARINA MCDERMOTT Physician Instructions: Reason For Exam: Respiratory failure, asthma exacerbation Primary care physician: [employer]CHNICIAN Hospitalization Condition: Critical Disposition: DC-01 TO HOME OR SELFCARE Final Discharge Diagnosis (Prints w/discharge instructions): Status asthmaticus, CAP, HTN, Morbid obesity, DM, COVID PUI Time spent for discharge: 34 minutes Exam - Constitutional Vitals: Temp Pulse Resp BP Pulse Ox 98.1 F 78 18 151/78 98 10/06/20 06:01 10/06/20 08:40 10/06/20 08:40 10/06/20 06:01 10/06/20 08:40 Plan Activity: advance as tolerated Weight Bearing Status: Weight Bear as Tolerated Diet: low fat, low salt Follow up with: PRIMARY CARE,MD [Primary Care Provider] - 3-5 Days Prescriptions: Prednisone [predniSONE 10 mg (6-Day Pack, 21 Tabs)] 10 mg PO .TAPER #1 tab.ds.pk ALBUTEROL NEB's [Proventil 0.083% NEBS] 2.5 mg IH TID PRN #30 neb PRN Reason: Wheezing Budesonide/Formoterol Fumarate [Symbicort 160-4.5 Mcg Inhaler] 10.2 gm IH BID #1 hfa.aer.ad Azithromycin [Zithromax TAB] 500 mg PO QDAY #3 tablet
[2020-10-06] MEDS ORDERED: HCTZ 6.25 MG PO SCH (13:00)
[2020-10-06] MEDS ORDERED: BISOPROLOL PO SCH (13:00)
[2020-10-06] MEDS ORDERED: metFORMIN 500 MG TAB PO SCH (13:00)
[2020-10-06] MEDS: allopurinoL 100 MG TAB PO SCH (13:05)
[2020-10-06] MEDS: LISINOPRIL 40 MG TAB PO SCH (13:06)
[2020-10-06] MEDS ORDERED: ALBUTEROL 2.5 MG/3 ML NEBU IH PRN (18:56)
--- NOTE | 2020-10-06 19:54 | Progress Note ---
Assessment and Plan Imp: 1. GNR bacteremia, ? source 2. Sepsis 3. Asthma exac. 4. Morbid obesity 5. Lactic acidosis Rec: 1. Cont. current pulmonary management 2. ABX added; f/u blood cultures 3. DVT PPx Plan of care reviewed with patient, he understands/agrees Subjective Date of service: 10/06/20 Principal diagnosis: Asthma exac. Interval history: SOB is better but had an episode of chills again this afternoon. No other complaints. Active Medications Acetaminophen (Acetaminophen 325 Mg Tab) 650 mg PO Q4H PRN PRN Reason: Pain MILD(1-3)/Fever >100.5/RUIZ Last Admin: 10/06/20 17:50 Dose: 650 mg Documented by: Albuterol (Albuterol 2.5 Mg/3 Ml Nebu) 2.5 mg IH Q4HRT PRN PRN Reason: Shortness Of Breath Allopurinol (Allopurinol 100 Mg Tab) 100 mg PO QDAY [facility] Last Admin: 10/06/20 13:05 Dose: 100 mg Documented by: Arformoterol Tartrate (Arformoterol 15 Mcg/2 Ml Nebu) 15 mcg IH Q12HRT [place] Atorvastatin Calcium (Atorvastatin 40 Mg Tab) 40 mg PO QHS [place] Azithromycin (Azithromycin 250 Mg Tab) 500 mg PO QDAY [facility]; Protocol Stop: 10/07/20 10:01 Last Admin: 10/06/20 10:40 Dose: 500 mg Documented by: Bisoprolol Fumarate (Bisoprolol 2.5 Mg/Hctz 6.25 Mg Tab) 2.5 each PO QDAY [place] Budesonide (Budesonide 0.5 Mg/2 Ml Nebu) 0.5 mg IH Q12HRT [facility] Last Admin: 10/06/20 08:40 Dose: 0.5 mg Documented by: Dextrose (Dextrose 50% In Water (25gm) 50 Ml Syringe) 0 ml IV Q30MIN PRN; Protocol PRN Reason: Hypoglycemia Heparin Sodium (Porcine) (Heparin 5,000 Unit/1 Ml Vial) 5,000 unit SUB-Q Q8HR [facility] Last Admin: 10/06/20 16:38 Dose: 5,000 unit Documented by: Hydralazine HCl (Hydralazine 20 Mg/1 Ml Inj) 5 mg IV Q4H PRN PRN Reason: Blood Pressure Ceftriaxone Sodium (Rocephin/Ns 2 Gm/100 Ml) 2 gm in 100 mls @ 200 mls/hr IV Q24H [facility]; Protocol Stop: 10/10/20 10:29 Last Admin: 10/06/20 10:40 Dose: 200 mls/hr Documented by: Insulin Human Lispro (Insulin Lispro 100 Unit/Ml) 0 unit SUB-Q ACHS [facility]; Protocol Last Admin: 10/06/20 16:42 Dose: Not Given Documented by: Lisinopril (Lisinopril 40 Mg Tab) 40 mg PO QDAY [facility] Last Admin: 10/06/20 13:06 Dose: 40 mg Documented by: Magnesium Hydroxide (Magnesium Hydroxide (Mom) Oral Liqd Udc) 30 ml PO Q4H PRN PRN Reason: Constipation Last Admin: 10/06/20 17:55 Dose: 30 ml Documented by: Metformin HCl (Metformin 500 Mg Tab) 2.5 mg PO QDAY [facility] Methylprednisolone Sodium Succinate (Methylprednisolone Sod Succinate 40 Mg/1 Ml Inj) 40 mg IV Q8HR [facility] Last Admin: 10/06/20 16:42 Dose: 40 mg Documented by: Ondansetron HCl (Ondansetron 4 Mg/2 Ml Inj) 4 mg IV Q8H PRN PRN Reason: Nausea And Vomiting Sodium Chloride (Sodium Chloride 0.9% 10 Ml Flush Syringe) 10 ml IV BID [facility] Last Admin: 10/06/20 10:41 Dose: 10 ml Documented by: Sodium Chloride (Sodium Chloride 0.9% 10 Ml Flush Syringe) 10 ml IV PRN PRN PRN Reason: LINE FLUSH Objective Vital Signs - 12hr 10/06/20 10/06/20 10/06/20 08:40 11:55 13:48 Temperature 97.8 F Pulse Rate 75 Pulse Rate [ 78 Bilateral] Respiratory 16 Rate Respiratory 18 Rate [Bilateral ] Blood Pressure 151/83 Blood Pressure [Left] O2 Sat by Pulse 98 97 98 Oximetry 10/06/20 10/06/20 15:00 18:41 Temperature 97.8 F Pulse Rate 74 Pulse Rate [ Bilateral] Respiratory 16 Rate Respiratory Rate [Bilateral ] Blood Pressure Blood Pressure 122/80 [Left] O2 Sat by Pulse 96 96 Oximetry Constitutional: no acute distress, alert, other (obese) Eyes: non-icteric ENT: oropharynx moist Neck: supple Effort: normal Ascultation: Bilateral: clear Cardiovascular: regular rate and rhythm (no mrg) Gastrointestinal: normoactive bowel sounds, soft, non-distended Integumentary: normal Extremities: no cyanosis Neurologic: normal mental status, non-focal exam, pupils equal and round Psychiatric: mood appropriate, affect normal CBC and BMP: 10/06/20 09:01 10/06/20 09:01 ABG, PT/INR, D-dimer: PT/INR, D-dimer PT 13.9 Sec. (12.2-14.9) 10/06/20 09:01 INR 1.09 (0.87-1.13) 10/06/20 09:01 D-Dimer 2308.90 ng/mlDDU (0-234) H 10/04/20 21:55 Abnormal lab findings: Abnormal Labs 10/04/20 10/04/20 10/04/20 21:24 21:24 21:24 WBC 18.0 H RBC 5.16 H MCV 81 L MCH 26 L RDW 16.2 H Seg Neuts % (Manual) 76.0 H Lymphocytes % (Manual) 6.0 L Seg Neutrophils # Man 13.7 H Lymphocytes # (Manual) 1.1 L D-Dimer Sodium 136 L Chloride Carbon Dioxide 19 L Creatinine 1.4 H Glucose POC Glucose Lactic Acid 3.20 H* Lactate Dehydrogenase C-Reactive Protein Albumin 2.9 L Urine WBC (Auto) 10/04/20 10/04/20 10/04/20 21:42 21:55 21:55 WBC RBC MCV MCH RDW Seg Neuts % (Manual) Lymphocytes % (Manual) Seg Neutrophils # Man Lymphocytes # (Manual) D-Dimer 2308.90 H Sodium Chloride Carbon Dioxide Creatinine Glucose 120 H POC Glucose Lactic Acid Lactate Dehydrogenase 232 H C-Reactive Protein 6.90 H Albumin Urine WBC (Auto) 37.0 H 10/04/20 10/05/20 10/05/20 22:03 08:21 08:55 WBC RBC MCV MCH RDW Seg Neuts % (Manual) Lymphocytes % (Manual) Seg Neutrophils # Man Lymphocytes # (Manual) D-Dimer Sodium Chloride Carbon Dioxide Creatinine Glucose POC Glucose 183 H Lactic Acid 2.70 H* 2.20 H* Lactate Dehydrogenase C-Reactive Protein Albumin Urine WBC (Auto) 10/05/20 10/05/20 10/05/20 12:31 13:00 13:00 WBC 17.5 H RBC MCV 82 L MCH 27 L RDW 16.8 H Seg Neuts % (Manual) Lymphocytes % (Manual) Seg Neutrophils # Man Lymphocytes # (Manual) D-Dimer Sodium Chloride Carbon Dioxide Creatinine Glucose POC Glucose 197 H Lactic Acid 3.00 H* Lactate Dehydrogenase C-Reactive Protein Albumin Urine WBC (Auto) 10/05/20 10/05/20 10/05/20 13:00 16:45 21:19 WBC RBC MCV MCH RDW Seg Neuts % (Manual) Lymphocytes % (Manual) Seg Neutrophils # Man Lymphocytes # (Manual) D-Dimer Sodium Chloride Carbon Dioxide 19 L Creatinine Glucose 145 H POC Glucose 166 H 217 H Lactic Acid Lactate Dehydrogenase C-Reactive Protein Albumin Urine WBC (Auto) 10/05/20 10/06/20 10/06/20 22:51 07:48 09:01 WBC 23.2 H RBC MCV 82 L MCH 26 L RDW 16.7 H Seg Neuts % (Manual) 97.0 H Lymphocytes % (Manual) 1.0 L Seg Neutrophils # Man 22.5 H Lymphocytes # (Manual) 0.2 L D-Dimer Sodium Chloride Carbon Dioxide Creatinine Glucose POC Glucose 178 H Lactic Acid 3.30 H* Lactate Dehydrogenase C-Reactive Protein Albumin Urine WBC (Auto) 10/06/20 10/06/20 10/06/20 09:01 12:21 16:22 WBC RBC MCV MCH RDW Seg Neuts % (Manual) Lymphocytes % (Manual) Seg Neutrophils # Man Lymphocytes # (Manual) D-Dimer Sodium Chloride 108.0 H Carbon Dioxide Creatinine Glucose 181 H POC Glucose 171 H 120 H Lactic Acid Lactate Dehydrogenase C-Reactive Protein Albumin Urine WBC (Auto) Chest x-ray: report reviewed, image reviewed CT scan - chest: report reviewed, image reviewed
[2020-10-06] MEDS: ARFORMOTEROL 15 MCG/2 ML NEBU IH SCH (20:35)
[2020-10-07] MEDS: methylPREDNISolone Sod Succinate 40 MG/1 ML INJ IV SCH (05:42)
[2020-10-07] MEDS: HEPARIN 5,000 UNIT/1 ML VIAL SUB-Q SCH ×2 (05:43→14:49)
[2020-10-07] MEDS: INSULIN LISPRO 100 UNIT/ML SUB-Q SCH ×3 (08:51→17:23)
[2020-10-07] MEDS: ARFORMOTEROL 15 MCG/2 ML NEBU IH SCH ×2 (08:52→20:32)
[2020-10-07] MEDS: BUDESONIDE 0.5 MG/2 ML NEBU IH SCH ×2 (08:52→20:32)
--- NOTE | 2020-10-07 09:55 | Progress Note ---
Assessment and Plan This is a 70-year-old morbidly obese -[place] male with history of diabetes mellitus type 2, hypertension and asthma presented to the hospital with complaints of sudden onset of shortness of breath which has been ongoing for the last 2 days before admission. Patient was admitted for Covid PUI, oxygen saturation was above 88% on room air. Acute hypoxic respiratory failure status asthmaticus Covid PUI, ruled out with a negative test Gram-negative bacteremia Urinary tract infection Morbid obesity with a BMI 45-49.9, adult Bilateral pneumonia, likely community-acquired Sepsis due to underlying UTI, bilateral pneumonia and gram-negative bacteremia CELSA, likely vasomotor nephropathy, POA -Continue scheduled nebulizer breathing treatment and as needed - on empiric steroid and antibiotic for possible pneumonia/UTI now blood culture is positive for gram-negative -CTA chest and chest x-ray was unremarkable - Provide supplemental oxygen to keep oxygen saturation above 92% - resume home medications, monitor BP -Follow final blood culture, follow ID recommendation for antibiotics -Good hydration, monitor BMP - Provide DVT prophylaxis with Lovenox. Daily clinical course: 10/05: 70-year-old morbidly obese male past medical history diabetes, hypertension, asthma presented with acute hypoxic respiratory failure Patient completed his Covid vaccination, unlikely to be COVID-19 pneumonia -PCR currently pending. Continue empiric antibiotics for possible bacterial pneumonia as procalcitonin is elevated and supplemental O2, periodic breathing treatment and empiric steroid for acute asthma exacerbation. Continue current plan and management as dictated in H&P 10/06: Patient was planned for discharge today but blood culture growing gram- negative rods. We will continue empiric antibiotics, will follow final blood culture results. We will also reconsult ID for discharge antibiotic regimen. Monitor vitals and repeat CBC BMP in the morning. Subjective Date of service: 10/06/20 Principal diagnosis: Asthma exac. Interval history: Patient seen and examined. Medical records and medication list reviewed. No acute event overnight noted by the RN. Patient denies any chest pain or difficulty breathing. Patient is tolerating diet. Blood culture growing gram-negative rods Discussed plan of care at bedside with patient. Objective - Exam Narrative Exam: GENERAL: well-developed morbidly obese -[place]ian male lying on bed appeared to be in no discomfort. HEENT: Normocephalic. Atraumatic. No conjunctival congestion or icterus. Patient has moist mucous membranes. NECK: Supple. Trachea midline. CHEST/LUNGS: Clear to auscultated bilaterally, breathing nonlabored. No wheezes crackles or rhonchi. HEART/CARDIOVASCULAR: Regular in rate and rhythm. S1 and S2 positive. ABDOMEN: Abdomen is soft, nontender. Patient has normal bowel sounds. SKIN: There is no rash. Warm and dry. NEURO: No focal motor deficit. Follows command. MUSCULOSKELETAL: No joint effusion or tenderness. EXTRIMITY: No edema, no cyanosis or clubbing. PSYCH: Cooperative. - Constitutional Vitals: Vital Signs - 12hr 10/07/20 05:34 Temperature 97.9 F Pulse Rate 68 Respiratory 18 Rate Blood Pressure 146/74 O2 Sat by Pulse 98 Oximetry - Labs CBC & Chem 7: 10/06/20 09:01 10/06/20 09:01 Labs: Abnormal lab results 10/06/20 10/06/20 10/06/20 Range/Units 09:01 12:21 16:22 Seg Neuts % (Manual) 97.0 H (40.0-70.0) % Lymphocytes % (Manual) 1.0 L (13.4-35.0) % Seg Neutrophils # Man 22.5 H (1.8-7.7) K/mm3 Lymphocytes # (Manual) 0.2 L (1.2-5.4) K/mm3 POC Glucose 171 H 120 H (70-105) mg/dL 10/06/20 10/07/20 Range/Units 21:46 07:32 Seg Neuts % (Manual) (40.0-70.0) % Lymphocytes % (Manual) (13.4-35.0) % Seg Neutrophils # Man (1.8-7.7) K/mm3 Lymphocytes # (Manual) (1.2-5.4) K/mm3 POC Glucose 126 H 155 H (70-105) mg/dL HEART Score - HEART Score Troponin: Troponin T < 0.010 ng/mL (0.00-0.029) 10/04/20 21:24
[2020-10-07] MEDS: cefTRIAXone/NS 2 GM/100 ML 2 GM/100 ML BAG IV SCH (10:09)
[2020-10-07] MEDS: allopurinoL 100 MG TAB PO SCH (10:10)
[2020-10-07] MEDS: AZITHROMYCIN 250 MG TAB PO SCH (10:10)
[2020-10-07] MEDS: LISINOPRIL 40 MG TAB PO SCH (10:22)
[2020-10-07 10:33] LABS: Hematocrit 37.9 % (35.5-45.6); Hemoglobin 12.2 gm/dl (11.8-15.2); Mean Corpuscular HGB Conc 32 % (32-34); Mean Corpuscular Volume 80 fl (84-94); Platelet Count 225 K/mm3 (140-440); Red Blood Count 4.74 M/mm3 (3.65-5.03); Red Cell Distribution Width 16.4 % (13.2-15.2)
[2020-10-07 10:56] LABS: Hemolysis Index 151
[2020-10-07 11:00] LABS: BUN/Creatinine Ratio TNR; Blood Urea Nitrogen TNR mg/dL (9-20); Calcium TNR mg/dL (8.4-10.2)
--- NOTE | 2020-10-07 11:26 | Progress Note ---
Assessment and Plan Cultures: 10/04/2020 blood culture: GNR 10/04/2020 urine culture: Usual skin rigoberto COVID-19 PCR: Negative A/P 70-year-old male with diabetes hypertension, asthma, morbid obesity with: #Sepsis, GNR bacteremia: Source probably urinary tract infection given evidence of pyuria however asymptomatic from urinary standpoint. Also, no concordance between blood and urine cultures #Asthma exacerbation: Pulmonary following: On steroids. Recs: -Ceftriaxone switched to IV cefepime -Follow-up blood culture results -CT abdomen, pelvis ordered to look for source of GNR bacteremia discussed with Dr. Russ Ferro MD, FACP [facility] O: [phone] F: [phone] Subjective Date of service: 10/07/20 Principal diagnosis: Asthma exac. Interval history: Patient reports having chills yesterday. Blood cultures turn positive for gram- negative rods, discussed with Dr. Solano. Patient denies urinary burning or abdominal pain. Objective - Exam Narrative Exam: Physical Exam: Constitutional: Alert, cooperative. No acute distress Head, Ears, Nose: Normocephalic, atraumatic. External ears, nose normal Eyes: Conjunctivae/corneas clear. No icterus. No ptosis. Neck: Supple, no meningeal signs Oral: dentition fair, no thrush Cardiovascular: S1, S2 normal. Respiratory: Good air entry, clear to auscultation bilaterally GI: Soft, non-tender; bowel sounds normal. No peritoneal signs Musculoskeletal: No pedal edema, no cyanosis. Skin: No rash or abscess Hem/Lymphatic: No palpable cervical or supraclavicular nodes. No lymphangitis Psych: Mood ok. Affect normal Neurological: Awake, alert, oriented. No gross abnormality - Constitutional Vitals: Vital Signs Temp Pulse Resp BP Pulse Ox 97.9 F 71 18 149/81 97 10/07/20 05:34 10/07/20 10:23 10/07/20 10:23 10/07/20 10:23 10/07/20 10:23 Temperature -Last 24 Hours Temperature 97.9 F Temperature 98.5 F Temperature 97.8 F Temperature 97.8 F - Labs CBC & Chem 7: 10/07/20 10:16 04/18/21 10:16 Labs: Abnormal lab results 10/06/20 10/06/20 10/06/20 Range/Units 12:21 16:22 21:46 WBC (4.5-11.0) K/mm3 MCV (84-94) fl MCH (28-32) pg RDW (13.2-15.2) % POC Glucose 171 H 120 H 126 H (70-105) mg/dL 10/07/20 10/07/20 Range/Units 07:32 10:16 WBC 21.5 H (4.5-11.0) K/mm3 MCV 80 L (84-94) fl MCH 26 L (28-32) pg RDW 16.4 H (13.2-15.2) % POC Glucose 155 H (70-105) mg/dL
[2020-10-07 12:17] LABS: BUN/Creatinine Ratio 17; Blood Urea Nitrogen 22 mg/dL (9-20); Hemolysis Index 10
[2020-10-07] MEDS ORDERED: CEFEPIME/NS 2 GM/100 ML 2 GM/100 ML BAG IV SCH (14:00)
--- NOTE | 2020-10-07 16:15 | Progress Note ---
Assessment and Plan This is a 70-year-old morbidly obese -[place] male with history of diabetes mellitus type 2, hypertension and asthma presented to the hospital with complaints of sudden onset of shortness of breath which has been ongoing for the last 2 days before admission. Patient was admitted for Covid PUI, oxygen saturation was above 88% on room air. Acute hypoxic respiratory failure status asthmaticus Covid PUI, ruled out with a negative test Gram-negative bacteremia Urinary tract infection Morbid obesity with a BMI 45-49.9, adult Bilateral pneumonia, likely community-acquired Sepsis due to underlying UTI, bilateral pneumonia and gram-negative bacteremia CELSA, likely vasomotor nephropathy, POA -Continue scheduled nebulizer breathing treatment and as needed - on empiric steroid and antibiotic for possible pneumonia/UTI now blood culture is positive for gram-negative -CTA chest and chest x-ray was unremarkable - Provide supplemental oxygen to keep oxygen saturation above 92% - resume home medications, monitor BP -Follow final blood culture, follow ID recommendation for antibiotics -Good hydration, monitor BMP - Provide DVT prophylaxis with Lovenox. Daily clinical course: 10/05: 70-year-old morbidly obese male past medical history diabetes, hypertension, asthma presented with acute hypoxic respiratory failure Patient completed his Covid vaccination, unlikely to be COVID-19 pneumonia -PCR currently pending. Continue empiric antibiotics for possible bacterial pneumonia as procalcitonin is elevated and supplemental O2, periodic breathing treatment and empiric steroid for acute asthma exacerbation. Continue current plan and management as dictated in H&P 10/06: Patient was planned for discharge today but blood culture growing gram- negative rods. We will continue empiric antibiotics, will follow final blood culture results. We will also reconsult ID for discharge antibiotic regimen. Monitor vitals and repeat CBC BMP in the morning. Subjective Date of service: 10/07/20 Principal diagnosis: Asthma exac. Objective - Constitutional Vitals: Vital Signs - 12hr 10/07/20 10/07/20 10/07/20 05:34 08:52 10:22 Temperature 97.9 F Pulse Rate 68 71 Pulse Rate [ 66 Anterior Bilateral Throughout] Respiratory 18 Rate Respiratory 20 Rate [Anterior Bilateral Throughout] Blood Pressure 146/74 149/81 Blood Pressure [Left] O2 Sat by Pulse 98 97 Oximetry 10/07/20 10/07/20 10:23 12:31 Temperature 98.0 F Pulse Rate 71 73 Pulse Rate [ Anterior Bilateral Throughout] Respiratory 18 18 Rate Respiratory Rate [Anterior Bilateral Throughout] Blood Pressure 159/79 Blood Pressure 149/81 [Left] O2 Sat by Pulse 97 96 Oximetry - Labs CBC & Chem 7: 10/07/20 10:16 10/07/20 11:16 Labs: Abnormal lab results 10/06/20 10/06/20 10/07/20 Range/Units 16:22 21:46 07:32 WBC (4.5-11.0) K/mm3 MCV (84-94) fl MCH (28-32) pg RDW (13.2-15.2) % BUN (9-20) mg/dL Glucose (75-100) mg/dL POC Glucose 120 H 126 H 155 H (70-105) mg/dL 10/07/20 10/07/20 10/07/20 Range/Units 10:16 11:16 11:17 WBC 21.5 H (4.5-11.0) K/mm3 MCV 80 L (84-94) fl MCH 26 L (28-32) pg RDW 16.4 H (13.2-15.2) % BUN 22 H (9-20) mg/dL Glucose 158 H (75-100) mg/dL POC Glucose 153 H (70-105) mg/dL 10/07/20 Range/Units 15:50 WBC (4.5-11.0) K/mm3 MCV (84-94) fl MCH (28-32) pg RDW (13.2-15.2) % BUN (9-20) mg/dL Glucose (75-100) mg/dL POC Glucose 127 H (70-105) mg/dL HEART Score - HEART Score Troponin: Troponin T < 0.010 ng/mL (0.00-0.029) 10/04/20 21:24
[2020-10-07] MEDS ORDERED: SODIUM CHLORIDE 0.9% 1000 ML 1,000 ML IV SCH (16:30)
--- NOTE | 2020-10-07 17:23 | Discharge Summary ---
Providers - Providers Date of Admission: 10/05/20 12:20 Date of discharge: 10/07/20 Attending physician: NICHOLAS HERNANDEZ 10/04/20 22:39 Consult to Physician [CONS] Routine Comment: Consulting Provider: ANAND ALVA Physician Instructions: Reason For Exam: pui 10/05/20 01:21 Consult to Dietitian/Nutrition [CONS] Routine Physician Instructions: Reason For Exam: Reason for Consult: Diet education 10/05/20 07:04 Consult to Physician [CONS] Routine Comment: Consulting Provider: MARINA MCDERMOTT Physician Instructions: Reason For Exam: Respiratory failure, asthma exacerbation 10/07/20 07:51 Consult to Physician [CONS] Routine Comment: Consulting Provider: REBEKAH FLEMING Physician Instructions: Reason For Exam: gm -ve bacteremia Primary care physician: [employer] Hospitalization Condition: Fair Pertinent studies: Chest CTA CXR Hospital course: This is a 70-year-old morbidly obese -[place] male with history of diabetes mellitus type 2, hypertension and asthma presented to the hospital with complaints of sudden onset of shortness of breath which has been ongoing for the last 2 days before admission. Patient was admitted for Covid PUI, oxygen saturation was around 88% on room air. Daily clinical course: 10/05: 70-year-old morbidly obese male past medical history diabetes, hypertension, asthma presented with acute hypoxic respiratory failure. Patient completed his Covid vaccination, unlikely to be COVID-19 pneumonia -PCR currently pending. Continue empiric antibiotics for possible bacterial pneumonia as procalcitonin is elevated and supplemental O2, periodic breathing treatment and empiric steroid for acute asthma exacerbation. Continue current plan and management as dictated in H&P 10/06: Negative COVID test. Patient was planned for discharge today but blood culture growing gram-negative rods. We will continue empiric antibiotics, will follow final blood culture results. We will also reconsult ID for discharge antibiotic regimen. Monitor vitals and repeat CBC BMP in the morning. 10/07: Changed abx to cefepime today for gm -ve bacteremia. ID recommended CT abdomen/pelvis to locate possible source of infection. Final blood cx still pending. Discussed with [facility] and patient will be transfer to [facility] under care of Dr Mejia. Disposition: [id number]/[place]-[id number] ANOTHER TYPE [facility] Final Discharge Diagnosis (Prints w/discharge instructions): Acute hypoxic respiratory failure. status asthmaticus. Covid PUI, ruled out with a negative test. Gram-negative bacteremia. Urinary tract infection. hypertension. DM type 2. Morbid obesity with a BMI 45-49.9, adult. Bilateral pneumonia, likely community-acquired. Sepsis due to underlying UTI, bilateral pneumonia and gram- negative bacteremia. CELSA, likely vasomotor nephropathy, POA Time spent for discharge: 44 minutes Core Measure Documentation - Palliative Care Palliative Care/ Comfort Measures: Not Applicable - Core Measures Any of the following diagnoses?: none Exam - Physical Exam Narrative exam: GENERAL: well-developed morbidly obese -[place] male sitting on bed appeared to be in no discomfort. HEENT: Normocephalic. Atraumatic. No conjunctival congestion or icterus. Patient has moist mucous membranes. NECK: Supple. Trachea midline. CHEST/LUNGS: Clear to auscultated bilaterally, breathing nonlabored. No wheezes crackles or rhonchi. HEART/CARDIOVASCULAR: Regular in rate and rhythm. S1 and S2 positive. ABDOMEN: Abdomen is soft, nontender. Patient has normal bowel sounds. SKIN: There is no rash. Warm and dry. NEURO: No focal motor deficit. Follows command. MUSCULOSKELETAL: No joint effusion or tenderness. EXTRIMITY: No edema, no cyanosis or clubbing. PSYCH: Cooperative. - Constitutional Vitals: Temp Pulse Resp BP Pulse Ox 98.0 F 73 18 159/79 96 10/07/20 12:31 10/07/20 12:31 10/07/20 12:31 10/07/20 12:31 10/07/20 12:31 Plan Activity: advance as tolerated Weight Bearing Status: Weight Bear as Tolerated Diet: low fat, low salt Follow up with: PRIMARY CARE,MD [Primary Care Provider] - 3-5 Days Prescriptions: Prednisone [predniSONE 10 mg (6-Day Pack, 21 Tabs)] 10 mg PO .TAPER #1 tab.ds.pk
[2020-10-07 17:41] VITALS: BP 145/74
--- NOTE | 2020-10-07 22:06 | Progress Note ---
Assessment and Plan Imp: 1. GNR bacteremia, ? source 2. Sepsis 3. Asthma exac. 4. Morbid obesity 5. Lactic acidosis Rec: 1. Cont. current pulmonary management 2. F/u blood cultures; ID following; CT a/p pending 3. DVT PPx Plan of care reviewed with patient, he understands/agrees Subjective Date of service: 10/07/20 Principal diagnosis: Asthma exac. Interval history: On RA. No SOB. No new complaints. Active Medications Acetaminophen (Acetaminophen 325 Mg Tab) 650 mg PO Q4H PRN PRN Reason: Pain MILD(1-3)/Fever >100.5/RUIZ Last Admin: 10/06/20 17:50 Dose: 650 mg Documented by: Albuterol (Albuterol 2.5 Mg/3 Ml Nebu) 2.5 mg IH Q4HRT PRN PRN Reason: Shortness Of Breath Allopurinol (Allopurinol 100 Mg Tab) 100 mg PO QDAY [facility] Last Admin: 10/07/20 10:10 Dose: 100 mg Documented by: Arformoterol Tartrate (Arformoterol 15 Mcg/2 Ml Nebu) 15 mcg IH Q12HRT [facility] Last Admin: 10/07/20 20:32 Dose: Not Given Documented by: Atorvastatin Calcium (Atorvastatin 40 Mg Tab) 40 mg PO QHS [facility] Last Admin: 10/06/20 21:47 Dose: 40 mg Documented by: Bisoprolol Fumarate (Bisoprolol 2.5 Mg/Hctz 6.25 Mg Tab) 1 each PO QDAY [facility] Last Admin: 10/07/20 14:45 Dose: Not Given Documented by: Budesonide (Budesonide 0.5 Mg/2 Ml Nebu) 0.5 mg IH Q12HRT [facility] Last Admin: 10/07/20 20:32 Dose: Not Given Documented by: Dextrose (Dextrose 50% In Water (25gm) 50 Ml Syringe) 0 ml IV Q30MIN PRN; Protocol PRN Reason: Hypoglycemia Heparin Sodium (Porcine) (Heparin 5,000 Unit/1 Ml Vial) 5,000 unit SUB-Q Q8HR [facility] Last Admin: 10/07/20 14:49 Dose: 5,000 unit Documented by: Hydralazine HCl (Hydralazine 20 Mg/1 Ml Inj) 5 mg IV Q4H PRN PRN Reason: Blood Pressure Cefepime HCl (Cefepime/Ns 2 Gm/100 Ml) 2 gm in 100 mls @ 200 mls/hr IV Q12H [facility]; Protocol Last Admin: 10/07/20 14:49 Dose: 200 mls/hr Documented by: Sodium Chloride (Nacl 0.9% 1000 Ml) 1,000 mls @ 100 mls/hr IV [place] Insulin Human Lispro (Insulin Lispro 100 Unit/Ml) 0 unit SUB-Q ACHS [facility]; Protocol Last Admin: 10/07/20 17:23 Dose: Not Given Documented by: Lisinopril (Lisinopril 40 Mg Tab) 40 mg PO QDAY [facility] Last Admin: 10/07/20 10:22 Dose: 40 mg Documented by: Magnesium Hydroxide (Magnesium Hydroxide (Mom) Oral Liqd Udc) 30 ml PO Q4H PRN PRN Reason: Constipation Last Admin: 10/06/20 17:55 Dose: 30 ml Documented by: Methylprednisolone Sodium Succinate (Methylprednisolone Sod Succinate 40 Mg/1 Ml Inj) 40 mg IV Q24H [facility] Ondansetron HCl (Ondansetron 4 Mg/2 Ml Inj) 4 mg IV Q8H PRN PRN Reason: Nausea And Vomiting Sodium Chloride (Sodium Chloride 0.9% 10 Ml Flush Syringe) 10 ml IV BID [facility] Last Admin: 10/07/20 10:10 Dose: 10 ml Documented by: Sodium Chloride (Sodium Chloride 0.9% 10 Ml Flush Syringe) 10 ml IV PRN PRN PRN Reason: LINE FLUSH Objective Vital Signs - 12hr 10/07/20 10/07/20 10/07/20 10:22 10:23 12:31 Temperature 98.0 F Pulse Rate 71 71 73 Respiratory 18 18 Rate Blood Pressure 149/81 159/79 Blood Pressure 149/81 [Left] O2 Sat by Pulse 97 96 Oximetry 10/07/20 10/07/20 15:00 15:47 Temperature 98.5 F Pulse Rate 67 Respiratory 20 18 Rate Blood Pressure 145/74 Blood Pressure [Left] O2 Sat by Pulse 97 96 Oximetry Constitutional: no acute distress, alert, other (obese) Eyes: non-icteric ENT: oropharynx moist Neck: supple Effort: normal Ascultation: Bilateral: clear Cardiovascular: regular rate and rhythm (no mrg) Gastrointestinal: normoactive bowel sounds, soft, non-distended Integumentary: normal Extremities: no cyanosis Neurologic: normal mental status, non-focal exam, pupils equal and round Psychiatric: mood appropriate, affect normal CBC and BMP: 10/07/20 10:16 10/07/20 11:16 ABG, PT/INR, D-dimer: PT/INR, D-dimer PT 13.9 Sec. (12.2-14.9) 10/06/20 09:01 INR 1.09 (0.87-1.13) 10/06/20 09:01 D-Dimer 2308.90 ng/mlDDU (0-234) H 10/04/20 21:55 Abnormal lab findings: Abnormal Labs 10/04/20 10/04/20 10/04/20 21:24 21:24 21:24 WBC 18.0 H RBC 5.16 H MCV 81 L MCH 26 L RDW 16.2 H Seg Neuts % (Manual) 76.0 H Lymphocytes % (Manual) 6.0 L Seg Neutrophils # Man 13.7 H Lymphocytes # (Manual) 1.1 L D-Dimer Sodium 136 L Chloride Carbon Dioxide 19 L BUN Creatinine 1.4 H Glucose POC Glucose Lactic Acid 3.20 H* Lactate Dehydrogenase C-Reactive Protein Albumin 2.9 L Urine WBC (Auto) 10/04/20 10/04/20 10/04/20 21:42 21:55 21:55 WBC RBC MCV MCH RDW Seg Neuts % (Manual) Lymphocytes % (Manual) Seg Neutrophils # Man Lymphocytes # (Manual) D-Dimer 2308.90 H Sodium Chloride Carbon Dioxide BUN Creatinine Glucose 120 H POC Glucose Lactic Acid Lactate Dehydrogenase 232 H C-Reactive Protein 6.90 H Albumin Urine WBC (Auto) 37.0 H 10/04/20 10/05/20 10/05/20 22:03 08:21 08:55 WBC RBC MCV MCH RDW Seg Neuts % (Manual) Lymphocytes % (Manual) Seg Neutrophils # Man Lymphocytes # (Manual) D-Dimer Sodium Chloride Carbon Dioxide BUN Creatinine Glucose POC Glucose 183 H Lactic Acid 2.70 H* 2.20 H* Lactate Dehydrogenase C-Reactive Protein Albumin Urine WBC (Auto) 10/05/20 10/05/20 10/05/20 12:31 13:00 13:00 WBC 17.5 H RBC MCV 82 L MCH 27 L RDW 16.8 H Seg Neuts % (Manual) Lymphocytes % (Manual) Seg Neutrophils # Man Lymphocytes # (Manual) D-Dimer Sodium Chloride Carbon Dioxide BUN Creatinine Glucose POC Glucose 197 H Lactic Acid 3.00 H* Lactate Dehydrogenase C-Reactive Protein Albumin Urine WBC (Auto) 10/05/20 10/05/20 10/05/20 13:00 16:45 21:19 WBC RBC MCV MCH RDW Seg Neuts % (Manual) Lymphocytes % (Manual) Seg Neutrophils # Man Lymphocytes # (Manual) D-Dimer Sodium Chloride Carbon Dioxide 19 L BUN Creatinine Glucose 145 H POC Glucose 166 H 217 H Lactic Acid Lactate Dehydrogenase C-Reactive Protein Albumin Urine WBC (Auto) 10/05/20 10/06/20 10/06/20 22:51 07:48 09:01 WBC 23.2 H RBC MCV 82 L MCH 26 L RDW 16.7 H Seg Neuts % (Manual) 97.0 H Lymphocytes % (Manual) 1.0 L Seg Neutrophils # Man 22.5 H Lymphocytes # (Manual) 0.2 L D-Dimer Sodium Chloride Carbon Dioxide BUN Creatinine Glucose POC Glucose 178 H Lactic Acid 3.30 H* Lactate Dehydrogenase C-Reactive Protein Albumin Urine WBC (Auto) 10/06/20 10/06/20 10/06/20 09:01 12:21 16:22 WBC RBC MCV MCH RDW Seg Neuts % (Manual) Lymphocytes % (Manual) Seg Neutrophils # Man Lymphocytes # (Manual) D-Dimer Sodium Chloride 108.0 H Carbon Dioxide BUN Creatinine Glucose 181 H POC Glucose 171 H 120 H Lactic Acid Lactate Dehydrogenase C-Reactive Protein Albumin Urine WBC (Auto) 10/06/20 10/07/20 10/07/20 21:46 07:32 10:16 WBC 21.5 H RBC MCV 80 L MCH 26 L RDW 16.4 H Seg Neuts % (Manual) Lymphocytes % (Manual) Seg Neutrophils # Man Lymphocytes # (Manual) D-Dimer Sodium Chloride Carbon Dioxide BUN Creatinine Glucose POC Glucose 126 H 155 H Lactic Acid Lactate Dehydrogenase C-Reactive Protein Albumin Urine WBC (Auto) 10/07/20 10/07/20 10/07/20 11:16 11:17 15:50 WBC RBC MCV MCH RDW Seg Neuts % (Manual) Lymphocytes % (Manual) Seg Neutrophils # Man Lymphocytes # (Manual) D-Dimer Sodium Chloride Carbon Dioxide BUN 22 H Creatinine Glucose 158 H POC Glucose 153 H 127 H Lactic Acid Lactate Dehydrogenase C-Reactive Protein Albumin Urine WBC (Auto) Chest x-ray: report reviewed, image reviewed CT scan - chest: report reviewed, image reviewed
[2020-10-08] MEDS ORDERED: methylPREDNISolone Sod Succinate 40 MG/1 ML INJ IV SCH (10:00)
[2020-10-08] MEDS ORDERED: metFORMIN 500 MG TAB PO SCH (10:00)
== END 2020-10-07 20:25 | disposition home or self-care (01) | DRG 871 ==
LOC: ED 21:00 → 3A 10-05 01:14 → OBSVTOIN 10-05 12:20 → 3A 10-05 18:02
PROVIDERS: ADMIT Internal Medicine Geriatric Medicine; ATTEND Internal Medicine
DX: A41.50 Gram-negative sepsis, unspecified (principal); N17.0 Acute kidney failure with tubular necrosis; J96.01 Acute respiratory failure with hypoxia; J18.9 Pneumonia, unspecified organism; J45.42 Moderate persistent asthma with status asthmaticus; N30.01 Acute cystitis with hematuria; Z68.42 Body mass index [BMI] 45.0-49.9, adult; Z20.822 Contact with and (suspected) exposure to COVID-19; E11.9 Type 2 diabetes mellitus without complications; I10 Essential (primary) hypertension; E66.01 Morbid (severe) obesity due to excess calories; Z79.899 Other long term (current) drug therapy; Z79.52 Long term (current) use of systemic steroids
CPT/HCPCS: 36415; 71045; 71275; 80048; 80053; 81001; 82140; 82550; 82553; 82728; 82947; 82962; 83615; 84145; 84484; 85007; 85025; 85027; 85379; 85610; 86140; 87040; 87086; 93005; 94640; 94644; 96365; 96375; G0378; A9270-GY; J0456; J0692; J0696; J1644; J1815; J2920; J3475; J7030; Q9967; U0003